=== PATIENT | male | born 1990 | race African-American/Black ===

== ENCOUNTER 2018-07-25 15:14 | Emergency (ER) | payer OTHER ==
[~2018-07-25] VITALS: Ht 175.3 cm; Wt 90.7 kg
[2018-07-25 15:15] VITALS: BP 140/71
[2018-07-25] MEDS ORDERED: AZITHROMYCIN 250 MG TABLET. PO ONE (15:45)
--- NOTE | 2018-07-25 15:57 | PHYS DOC ---
Past History Past Medical History: No Pertinent History Past Surgical History: No Surgical History Alcohol Use: None Drug Use: None Adult General Chief Complaint Chief Complaint: SEXUALLY TRANSMITTED DISEASE HPI HPI Patient is a 28 year old male who presents with concerns about STD exposure. Patient states he has been with his current girlfriend for about 11 months and she was informed him that she was diagnosed with chlamydial infection and unable to get treatment for chlamydia. Patient denies penile discharge or urinary symptom. Review of Systems Review of Systems Constitutional: Denies fever or chills [] Eyes: Denies change in visual acuity, redness, or eye pain [] HENT: Denies nasal congestion or sore throat [] Respiratory: Denies cough or shortness of breath [] Cardiovascular: No additional information not addressed in HPI [] GI: Denies abdominal pain, nausea, vomiting, bloody stools or diarrhea [] : Denies dysuria or hematuria [] Musculoskeletal: Denies back pain or joint pain [] Integument: Denies rash or skin lesions [] Neurologic: Denies headache, focal weakness or sensory changes [] Endocrine: Denies polyuria or polydipsia [] All other systems were reviewed and found to be within normal limits, except as documented in this note. Current Medications Current Medications Current Medications Medications (Trade) Dose Ordered Sig/Macey Start Time Stop Time Status Last Admin Dose Admin Azithromycin (Zithromax) 2,000 mg 1X ONCE 07/25/18 15:45 07/25/18 15:47 DC Allergies Allergies Allergies Uncoded Allergies Type Severity Reaction Last Updated Verified suprex Allergy Intermediate facial swelling 07/25/18 Physical Exam Physical Exam Constitutional: Well developed, well nourished, no acute distress, non-toxic appearance. [] HENT: Normocephalic] Eyes: PERRLA, EOMI, conjunctiva normal, no discharge. [] Neck: Normal range of motion, no tenderness, supple, no stridor. [] Cardiovascular:Heart rate regular rhythm, no murmur [] Lungs & Thorax: Bilateral breath sounds clear to auscultation [] Abdomen: Bowel sounds normal, soft, no tenderness, no masses, no pulsatile masses. [] Skin: Warm, dry, no erythema, no rash. [] Back: No tenderness, no CVA tenderness. [] Extremities: No tenderness, no cyanosis, no clubbing, ROM intact, no edema. [] Neurologic: Alert and oriented X 3, normal motor function, normal sensory function, no focal deficits noted. [] Psychologic: Affect normal, judgement normal, mood normal. [] Current Patient Data Vital Signs Vital Signs Date Time Temp Pulse Resp B/P (MAP) Pulse Ox O2 Delivery O2 Flow Rate FiO2 07/25/18 15:15 99.0 68 18 98 Room Air EKG EKG [] Radiology/Procedures Radiology/Procedures [] Course & Med Decision Making Course & Med Decision Making Evaluation of patient in ER showed 28-year-old male patient with concern for STD. Urine for GC chlamydia was obtained and patient treated 2 gr of Zithromax because of allergy to Suprax Dragon Disclaimer Dragon Disclaimer This electronic medical record was generated, in whole or in part, using a voice recognition dictation system. Departure Departure: Impression: Primary Impression: Concern about sexually transmitted disease in male without diagnosis Disposition: 01 HOME, SELF-CARE (at 1554) Condition: STABLE Referrals: LIZZETH ROLLE PA-C (PCP) Patient Instructions: Sexually Transmitted Disease Additional Instructions: Follow-up with your primary care physician in 3-5 days Return to ER if not getting better LUKASZ ABERNATHY MD Jul 25, 2018 15:57
== END 2018-07-25 16:00 | disposition home or self-care (01) ==
LOC: ER 15:14
DX: Z20.2 Contact with and (suspected) exposure to infections with a predominantly sexual mode of transmission (principal); Z88.8 Allergy status to other drugs, medicaments and biological substances
CPT/HCPCS: 36415; 87491; 87591; 99284; J0456